=== PATIENT | male | born 1985 | race Hispanic/Latino ===

== ENCOUNTER 2016-12-04 11:05 | Emergency (ER) | payer OTHER ==
[~2016-12-04] VITALS: Ht 182.9 cm; Wt 102.3 kg
[2016-12-04 11:53] VITALS: BP 129/86; PULSE 74; O2SAT 99
--- NOTE | 2016-12-04 13:56 | PCM.EDPN ---
ED Note Date of Service Dec 04, 2016 Maurisio is a 31-year-old male with chief complaint of low back pain. I was aware of this patient and went to meet with him, but he was occupied with registration. I moved on to the next chair. Shortly after that the patient's came and spoke to me at my work station asking how long it would be. I assured her I would be just a few more minutes, however when I returned to see the patient perhaps 2 minutes later, he was gone. At that point I had reviewed the nursing notes which indicate chronic back pain aggravated by playing baseball. The patient woke up this morning with increased pain and left leg radiculopathy. There is no indication in the nursing notes of emergent condition. His vital signs are within normal limits, specifically he is afebrile. I believe he is competent to make this decision. Carlos Cook PA-C Dec 04, 2016 13:56
[2016-12-05] MEDS ORDERED: HYDR-4003 PO (10:17)
== END 2016-12-04 13:58 | disposition left against medical advice (07) ==
LOC: SED 11:05
DX: M54.5 Low back pain (principal); Z53.21 Procedure and treatment not carried out due to patient leaving prior to being seen by health care provider

== ENCOUNTER 2016-12-05 09:38 | Emergency (ER) | payer OTHER ==
[~2016-12-05] VITALS: Ht 182.9 cm; Wt 104.5 kg
[2016-12-05 09:40] VITALS: BP 138/91; PULSE 88; RESP 18; O2SAT 99
--- NOTE | 2016-12-05 09:57 | ED.REPORT ---
HPI-Back Pain Under 40 Date of Service Dec 05, 2016 ED Provider: Darwin Treadwell MD A 31 year old male with a history of back pain presents to the ED complaining of lower back pain onset 2 days ago after he was playing ball with his children. Pain onset later in the evening, and he does not recall a specific injury and does not have any concern for any broken bones. The pain is described as pressure on his spine and there is a burning sensation in his back , hips, and legs down to his knees. Associated symptoms include pain with coughing. He denies any incontinence, fever, or loss of leg function. He hurt his back approximately one year ago and since then, he has had intermittent baseline back pain described as burning that seems to show up at least once per day, but he is normally functional. He has not taken any medication for the pain and he is not currently taking any regular prescribed medications. Nursing Notes Stated Complaint: BACK PAIN Chief Complaint: Back Pain or Injury Nursing Notes Reviewed: Yes Allergies: Coded Allergies: No Known Allergies (Unverified Allergy, Unknown, 12/14/14) Scheduled PRN Hydrocodone-Acetaminophen 5-325 mg (Hydrocodone-Acetaminophen 5-325 mg) 1 Each Tablet 1-3 TABLET PO Q6H PRN PRN For Pain General Time Seen by MD: 09:54 Chief Complaint Back pain Hx Obtained From: Patient, Spouse Arrived By: Walk-in Sudden in Onset?: No Onset Occurred: 2 days ago Symptom Duration: Since onset Quality: Burning Radiation: : Left leg above knee: Right leg above knee Severity: Current: Moderate Severity: Maximum: Moderate Recent Healthcare: Recent doctor visit (ED visit on 12/04/2016) Similar Sx Previous: No Past Medical History Past Medical History Notes: healthy male, no PCP Past Medical History Baseline intermittent back pain onset one year ago after back injury. No regular medications. Denies: Asthma, Diabetes mellitus Past Surgical History Reports: Tonsillectomy Smoking History Former Smoker Social History Smokeless tobacco Alcohol Use: Denies alcohol use Drug Use: Denies drug use Other Social History: Good social support Ambulatory Status Independent Review of Systems Review of Systems Note: Denies loss of leg function. Constitutional: Denies: Fever Respiratory: Reports: Non-productive cough (pain with coughing) Male: Denies Incontinence Musculoskeletal: Reports: Back pain, Extremity pain (pain in legs and hips) Complete sys rev & neg: except as marked. Physical Exam Initial Vital Signs Vital Signs (First) Date Time Temp Pulse Resp B/P Pulse Ox O2 Delivery O2 Flow Rate FiO2 12/05/16 09:40 36.4 88 18 138/91 99 Room Air Initial VS: Reviewed General/Constitutional: Awake, Alert Back: No midline vertebral tend Flank / Spine / Paraspinal: Positive: Lumbar paraspinal tend... (left) Neurologic: Oriented X3, Speech NL, No motor deficits, No sensory deficits Patient is ambulatory. Neurologically intact. No lung exam performed. No heart exam performed. No abdomen exam performed. Head / Eyes: Atraumatic, Normocephalic, PERRL, EOMI ENT: Atraumatic, Mucous membranes moist Upper Extremity / MS: Atraumatic, Full range of motion Ankle / Foot: Atraumatic, Inspection NL Normal dorsiflexion and plantar flexion of ankles. Skin: Atraumatic, Color NL, Warm, Dry Re-Eval/Medical Decision Source of Hx: Old records Re-Evaluation/Progress : Time of Eval: 09:54 Patient Status: Condition improved Re-Evaluation/Progress Note: Explained test results, diagnosis, and plan for discharge. Patient understands and agrees with the plan. All questions addressed. Counseled Regarding: Diagnosis, Need for follow-up, When/why to return to ED Discharge & Departure Impression: Primary Impression: Lumbosacral strain Encounter type: initial encounter Qualified Code: S39.012A - Strain of muscle, fascia and tendon of lower back, initial encounter Additional Impression: Lumbar radiculopathy, acute Disposition: Home All VS Reviewed: Yes Condition: Patient Instructions: Lumbar Radiculopathy (ED), Acute Low Back Pain (ED) Additional Instructions: From your physical evaluation, I do not have a concern for any dangerous nerve impingement or any other dangerous injuries. Return to the emergency department if you experience any weakness (your legs or back won't move), incontinence (loss of control of bowel or bladder function ) , or dense numbness. Follow-up later this week if symptoms are not significantly improved. Take ibuprofen 800 mg every 8 hours. Additionally, take hydrocodone/APAP 5/325 1-3 pills every 6 hours as needed for more severe pain. The pain medication I give you will not take away the pain completely, but it will give significant relief. Do not consume alcohol or operate any motor vehicles while taking the prescribed pain medication. Make sure that you do not take more than 4000 mg of Tylenol in 24 hours. Each tablet of the pain medicine contains 325 mg of Tylenol. Call the referred doctor today to schedule a follow-up appointment. Referrals: NOPCP (PCP) Edyta Hameed MD Attestation Portions of this note were transcribed by Mo Wilson. I, Dr. Treadwell personally performed the history, physical exam and medical decision-making; I reviewed and confirmed the accuracy of the information in the transcribed note. Signed by: Randi Skinner, 12/05/2016, 1030. copies to: Edyta Hameed MD; NOPCP Darwin Treadwell MD Dec 05, 2016 09:57 Mo Wilson Dec 05, 2016 10:05
[2016-12-05] MEDS ORDERED: HYDROcodone-APAP 5-325 mg Tablet PO ONE (10:10)
[2016-12-05] MEDS ORDERED: HYDR-4003 PO (10:17)
== END 2016-12-05 10:17 | disposition home or self-care (01) ==
LOC: SED 09:38
DX: S39.012A Strain of muscle, fascia and tendon of lower back, initial encounter (principal); M54.16 Radiculopathy, lumbar region; X50.3XXA Overexertion from repetitive movements, initial encounter; Y93.89 Activity, other specified; Y99.8 Other external cause status; Y92.9 Unspecified place or not applicable; Z87.891 Personal history of nicotine dependence